=== PATIENT | female | born 1960 | race African-American/Black ===

== ENCOUNTER 2024-03-10 08:51 | Outpatient (CLI) | payer OTHER | END 2024-03-10 08:52 | disposition home or self-care (01) | LOC: CSHMAMMO 08:51 | PROVIDERS: ATTEND Student in an Organized Health Care Education/Training Program | DX: Z12.31 Encounter for screening mammogram for malignant neoplasm of breast (principal); Z80.3 Family history of malignant neoplasm of breast | CPT/HCPCS: 77063; 77067 ==

== ENCOUNTER 2025-05-28 09:34 | Outpatient (CLI) | payer OTHER | END 2025-05-28 09:35 | disposition home or self-care (01) | LOC: CSHCT 09:34 | PROVIDERS: ATTEND Student in an Organized Health Care Education/Training Program | DX: Z12.2 Encounter for screening for malignant neoplasm of respiratory organs (principal); F17.210 Nicotine dependence, cigarettes, uncomplicated | CPT/HCPCS: 71271 ==